=== PATIENT | male | born 2000 | race Caucasian/White ===

== ENCOUNTER 2024-05-27 02:11 | Emergency (ER) | payer MEDICAID, SELFPAY ==
[2024-05-27 02:12] VITALS: BMI 18.2
[2024-05-27 02:29] VITALS: BP 123/84; PULSE 66; RESP 16; TEMP 36.5; O2SAT 98
--- NOTE | 2024-05-27 02:44 | XR_ITS ---
Examination: CT orbits, without intravenous contrast. 2-D sagittal reconstructions. 3-D reconstructions. Date and time of exam:May 27, 2024 at 0322 hours INDICATIONS: Injury to the left eye today with left thigh pain CTDI: vol (mGy):14.2 DLP: (mGycm):180 Technique: Multiple axial images of orbital region, 3.0 mm slice thickness. 2-D sagittal and coronal reconstructions. 3-D reconstructions. Low dose protocols were performed. One or more of the following dose reduction techniques were used; automated exposure control, adjustment of the mA and/or KV according to patient size, use of iterative reconstruction technique. Findings: The optic globes are intact Symmetrical optic nerves No retro-orbital contusion Bony pastrana of the orbits intact No opaque foreign bodies IMPRESSION: The optic globes are intact.
--- NOTE | 2024-05-27 02:46 | PD.EDEYE ---
ED Eye Problem RME/HPI General Chief complaint: Eye Problems Stated complaint: LEFT EYE INJURY Time Seen by Provider: 05/27/24 02:12 Source: patient Arrival date/time: 05/27/24 02:11 Mode of arrival: ambulatory Limitations: no limitations RME / HPI RME / HPI Narrative: 23-year-old male with no reported past medical history presents for evaluation of left eye pain. Patient reports that he was weed whacking at approximately noon today when a rock hit his left eye. Patient notes persistent watering of his eye. He notes headache and blurred vision which she attributes to persistent tearing of his eyes. He denies vision loss, dizziness, fever, nausea, vomiting. Patient does not wear contact lenses. MD chief complaint: eye pain and eye injury Onset (ago): hour(s) Duration: constant Location: left eye Eye Symptoms: pain Place: street/outdoors Mechanism: other (Trauma by a rock while doing yard work.) Associated symptoms: none Treatments Prior to Arrival: none Related Data Patient tetanus UTD: Yes Previous Rx's ?Medication ?Instructions ?Recorded azithromycin 250 mg tablet See Rx Instructions PO .COMPLEX #6 02/23/21 tabs ibuprofen 400 mg tablet 400 mg PO Q6H #30 tabs 02/23/21 erythromycin 5 mg/gram (0.5 %) eye 0.5 inch ophthalmic (eye) BID #3.5 05/27/24 ointment grams Allergies Allergy/AdvReac Type Severity Reaction Status Date / Time No Known Allergies Allergy Verified 05/27/24 02:12 Review of Systems Constitutional Constitutional: Denies chills and Denies fever(s) Eyes Eyes: Denies blind spots, Reports blurry vision, Denies change in vision, Denies diplopia, Reports eye discharge (tears. ), Reports irritation, Denies loss of peripheral vision, Reports photophobia, Denies requires corrective lenses and Denies spots in vision Cardiovascular Cardiovascular: Denies chest pain and Denies dyspnea Respiratory Respiratory: Denies dyspnea Gastrointestinal Gastrointestinal: Denies nausea and Denies vomiting Integumentary/Breasts Skin/Breast: Denies wounds Past Medical History Social History SMOKING STATUS: Current every day smoker ED Exam General Limitations: Present no limitations General appearance: Present alert and in no apparent distress Expanded Head Exam Head exam physical: Absent abrasion, contusion, hematoma or raccoon eyes Eye Eye exam: Absent periorbital swelling Expanded Eye Exam Eyelids: left: erythema and bilateral: normal inspection Pupils: Left: size (2mm), Right: regular, round and size (4mm) and Bilateral: reactive Sclera/Conjunctival: left: injection With correction: No IOP measured with: other (Fluorescein uptake in left eye, see procedure for details.) Neck Neck exam: Present normal inspection and full ROM Respiratory Respiratory exam: Absent respiratory distress Cardiovascular Cardiovascular exam: Present regular rate and +S1 Abdominal Exam Abdominal exam: Present soft; Absent distention Back Exam Back exam: Present normal inspection and full ROM Neurological Exam Neurological exam: Present alert and normal gait Psychiatric Psychiatric exam: Present normal affect Skin Skin exam: Present warm and dry Course Quality Measures none Orders Category Date Time Status CT head/brain wo con Stat Exams 05/27/24 03:[address] orbit BI wo con Stat Exams 05/27/24 02:44 Taken Fluorescein Sodium [Pwoax-B-Duioa] Med 05/27/24 02:38 Discontinued 1 mg .ROUTE .STK-MED ONE Fluorescein Sodium [Mmpiq-H-Dmbbe] Med 05/27/24 04:00 Discontinued 1 mg LEFT EYE X1 ONE TETRACAINE Op Shilpa 0.5% [Pontocaine Op Shilpa 0.5%] Med 05/27/24 02:33 Discontinued 1 drop LEFT EYE X1 ONE Tetanus, Diphtheria Toxoids/Pf [Tenivac-Adult] Med 05/27/24 02:46 Discontinued 0.5 ml IMI .ONCE ONE Vital Signs Vital signs: Vital Signs Temperature 97.7 F 05/27/24 02:29 Pulse Rate 66 05/27/24 02:29 Respiratory Rate 16 05/27/24 02:29 Blood Pressure 123/84 05/27/24 02:29 Pulse Oximetry (%) 98 05/27/24 02:29 Oxygen Delivery Method Room Air 05/27/24 02:29 Pulse ox 98% on room air, within normal limits. Procedures -ED Jenkins Lamp Exam Left eye: Flourescein uptake:: Yes Jenkins Lamp Findings: Corneal abrasion Additional comments: infrapupillary, lateral lesion with stain uptake. Eye MDM Narrative MDM Narrative:: 23-year-old male presented with left eye pain following a foreign body aches posterior wall doing yard work today. Visual acuity documented. Vital signs reassuring. Fluorescein stain with Jenkins lamp showed fluorescein uptake in the left lateral supra pupillary region. On exam patient's left pupil was more constricted than right therefore CT orbit was obtained which was fortunately negative for acute process. Patient endorsed headache therefore CT head was obtained which showed no acute intracranial abnormality. Patient's pain was improved following the tetracaine drops used prior to Jenkins lamp exam. Ultimately the patient was discharged with plan to follow-up in the ED and x 5 days for recheck. Patient was given erythromycin ointment to apply to his left eye twice daily and advised to use lubricating eyedrops as needed for discomfort. Patient was seen with Dr. Didier Prado. Patient stable at the time of discharge. Patient data External records reviewed:: None Clinical information provided by:: patient Social determinants that could affect healthcare access:: none Patient has the following chronic illnesses:: None reported. How is presenting disease/condition affected by chronic disease/condition?: no chronic disease Evaluation data The following diagnostics were reviewed and interpreted by me:: radiology exam(s) Lab and/or radiology exams considered but not ordered:: Considered not ordered. Interpretation Summary: CT head with no midline shift, no acute intracranial abnormality. Unremarkable bilateral CT orbital exam without contrast. Medications / Prescriptions Medications or Prescriptions considered but not ordered:: Rx given. Medication administrations:: Medication Administration History Discontinued Medications Fluorescein Sodium (Fluorescein Sod 1 Mg Strp) Confirm Administered Dose 1 mg .ROUTE .STK-MED ONE Stop: 05/27/24 02:39 Last Admin: 05/27/24 03:36 Dose: Not Given Documented By: SE Non-Admin Reason: Other, see note Fluorescein Sodium (Fluorescein Sod 1 Mg Strp) 1 mg LEFT EYE X1 ONE Stop: 05/27/24 04:01 Last Admin: 05/27/24 04:02 Dose: 1 mg Documented By: SE Tetanus/Diphtheria Toxoids (Tetanus,Diphtheria Toxoids/Pf (Adult) 0.5 Ml Syringe) 0.5 ml IMi .ONCE ONE Stop: 05/27/24 02:47 Last Admin: 05/27/24 03:06 Dose: Not Given Documented By: SF Non-Admin Reason: Patient Refused Tetracaine HCl (Tetracaine Pf Op Shilpa 0.5% 4 Ml Drpette) 1 drop LEFT EYE X1 ONE Stop: 05/27/24 02:34 Last Admin: 03/24/25 03:00 Dose: 1 drop Documented By: MARLYN Rx given. Consultations Consultation(s) initiated? (list below): No Diagnosis Eye Problem Differential Diagnosis: corneal abrasion, conjunctivitis, acute iritis, hyphema, subconjunctival hemorrhage and ruptured globe Most likely diagnosis given after review of the tests above:: Corneal abrasion. Admission Indicated Admission indicated?: not indicated Admission Request Was there a request for admission?: No Disposition Plan Disposition Plan: Discharge Discharge Attestation Discharge Attestation: The patient and all family members were given an opportunity to ask questions and understood the discharge instructions. Discharge instructions specifically effects, indications for sooner follow up or return to the emergency department, and the expected course of current diagnosis. Patient condition: Stable Discharge Plan Plan Patient Disposition: HOME (Self Care) Disposition Comment: stable Prescriptions/Referrals Prescriptions/Med Rec: New erythromycin 5 mg/gram (0.5 %) ointment 0.5 inch ophthalmic (eye) BID Qty: 3.5 0RF Rx Instructions: apply ointment to eye twice daily for five days. No Action azithromycin 250 mg tablet See Rx Instructions .ROUTE .COMPLEX Qty: 6 0RF Rx Instructions: For 250 mg dose pack: take 500 mg today (day 1), then 250 mg for 4 days (days 2-5) ibuprofen 400 mg tablet 400 mg PO Q6H Qty: 30 0RF Referrals: Tracy Thompson FNP [Primary Care Provider] - In 1 week Problem List Clinical Impression: Corneal abrasion Patient/Caregiver Discharge Instructions Other Activity Instructions:: Apply apply topical antibiotic ointment to left eye twice daily for the next x 5 days. You may use lubricating eyedrops as needed for eye discomfort. Return to the ED in 5 days for recheck of corneal abrasion. Return to the ED immediately if your vision changes or your symptoms worsen or change. Education Materials: ED Corneal Abrasion Print Language: Kiswahili Stand Alone Forms: Angelina Award Info., Patient Portal Info Letter SUSAN/JOANA Supervising Physician SUSAN/JOANA Supervising Physician: Dr. Prado
[2024-05-27] MEDS: TETRACAINE PF OP SOL 0.5% 4 ML DRPETTE 1 DROP LEFT EYE (03:00)
--- NOTE | 2024-05-27 03:03 | XR_ITS ---
Examination: CT brain head without contrast. 2-D sagittal coronal reconstructions Date and time of exam:May 27, 2024 0321 hours INDICATIONS: Injury to the head and left eye today, left eye pain CTDI: vol (mGy):48 DLP: (mGycm):964 Technique: Multiple CT axial sections of the brain have been obtained, 5 mm slice thickness. Contrast has not been administered. 2-D sagittal, coronal reconstructions have been obtained Low dose protocols were performed. One or more of the following dose reduction techniques were used; automated exposure control, adjustment of the mA and/or KV according to patient size, use of iterative reconstruction technique. Findings: No significant ventricular enlargement. Intra-axial or extra-axial hemorrhage density is not seen. No mass effect or midline shift Basal cisterns are not remarkable. Fourth ventricle is midline. Cranial vault intact. Impression: Negative for acute hemorrhage, mass effect or midline shift
--- NOTE | 2024-05-27 03:36 | PC.NURSE ---
DRS ARE UNABLE TO ORDER FLUORECIEN STRIPS. [address] ELAM. UNABLE TO SCAN ON STOCK MED.
[2024-05-27] MEDS: FLUORESCEIN SOD 1 MG STRP LEFT EYE (04:02)
--- NOTE | 2024-05-27 04:46 | PRELIM_ITS ---
CT scan of the head without intravenous contrast (axial sections with sagittal and coronal reformats). May 27, 2024 0320 hours Clinical History: head s/p eye trauma Comparison: No prior study is available for comparison. Findings: No evidence of intracranial hemorrhage, mass effect or midline shift. The ventricles and CSF spaces are unremarkable. The calvarium is unremarkable. The mastoid air cells and the visualized paranasal sinuses are clear. Impression: No evidence of intracranial hemorrhage, mass effect or midline shift. Report Electronically Signed By: Donald Kat 05/27/2024 4:46:08 AM [EST]
--- NOTE | 2024-05-27 04:57 | PRELIM_ITS ---
CT scan of the head and orbits without intravenous contrast (axial sections with sagittal and coronal reformats) May 27, 2024 0322 hours Clinical History: eye trauma x14 hrs ago; mild pupillary deficit Lt Comparison: No prior study is available for comparison. Findings: There is no evidence of intracranial hemorrhage, mass effect or midline shift. The ventricles, sulci and basal cisterns are normal. The calvarium is unremarkable. The mastoid air cells and the visualized paranasal sinuses are clear. The orbital pastrana are intact. Both orbits are symmetrical with no evidence of exophthalmos. The globes and orbital muscles are unremarkable. The orbital fat is normal bilaterally. The periorbital soft tissues appear normal. Impression: No evidence of intracranial hemorrhage, mass effect or midline shift. Unremarkable CT study of the orbits. Report Electronically Signed By: Donald Kat 05/27/2024 4:56:15 AM [EST]
[2024-05-27 05:19] VITALS: RESP 18
== END 2024-05-27 05:20 | disposition home or self-care (01) ==
PROVIDERS: Emergency Provider Emergency Medicine; PCP Nurse Practitioner Family
DX: S05.02XA Injury of conjunctiva and corneal abrasion without foreign body, left eye, initial encounter (principal); W22.09XA Striking against other stationary object, initial encounter
CPT/HCPCS: 70450; 70480; 90714; 99284